=== PATIENT | male | born 1995 | race Caucasian/White ===

== ENCOUNTER 2017-03-31 19:07 | Emergency (ER) | payer MEDICAID ==
[2017-03-31 21:16] VITALS: BP 116/54
== END 2017-03-31 21:16 | disposition home or self-care (01) ==
LOC: ED 19:07
DX: S51.812A Laceration without foreign body of left forearm, initial encounter (principal); W45.8XXA Other foreign body or object entering through skin, initial encounter; Y93.89 Activity, other specified; Y99.8 Other external cause status; Y92.89 Other specified places as the place of occurrence of the external cause
CPT/HCPCS: J2001

== ENCOUNTER 2017-06-24 15:47 | Emergency (ER) | payer MEDICAID ==
[2017-06-24 15:53] VITALS: BP 120/76
== END 2017-06-24 17:23 | disposition home or self-care (01) ==
LOC: ED 15:47
DX: A64 Unspecified sexually transmitted disease (principal)
CPT/HCPCS: J0696